=== PATIENT | male | born 1995 | race Caucasian/White ===

== ENCOUNTER 2018-11-28 13:58 | Emergency (ER) | payer BC ==
[~2018-11-28] VITALS: Ht 170.2 cm; Wt 72.6 kg
[~2018-11-28 13:58] MED LIST: AMOX-358 PO; IBUP-1780 PO
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
[2018-11-28] MEDS ORDERED: HYDR-4226 PO (14:59)
[2018-11-28 15:28] VITALS: BP 115/45
--- NOTE | 2018-11-28 15:30 | NUR ---
PATIENT LEFT WITHOUT INSTRUCTION AND RX FOR NORCO Addendum: 11/28/18 at 1543 by PMCCLURE PATIENT REPORTED TO REGISTRATION STAFF THAT HE NEEDED TO FILE REPORT.
--- NOTE | 2018-11-28 16:43 | Diagnostic Imaging Report ---
INDICATION: Pain. COMPARISON: 11/26/2013 TECHNIQUE: Three radiographs of the right hand dated 11/28/2018. FINDINGS: Recent mildly comminuted fracturing of the distal fifth metacarpal shaft and metacarpal neck. There is associated apex posterior angulation. No definite intra-articular extension. No additional fracture or dislocation. No destructive osseous process. Swelling of the hand, particularly medially. IMPRESSION: Acute comminuted mildly angulated fracture involving the distal fifth metacarpal. Report given to Roe Henderson APRN, at 4:40 p.m. 11/28/2018/josiah Dictated by: Dictated on workstation # [id number]
== END 2018-11-28 15:28 | disposition home or self-care (01) ==
LOC: EDUNIT# 13:58 → ER 13:59
DX: S62.336A Displaced fracture of neck of fifth metacarpal bone, right hand, initial encounter for closed fracture (principal); F17.210 Nicotine dependence, cigarettes, uncomplicated; W22.01XA Walked into wall, initial encounter
CPT/HCPCS: 29125; 73130